=== PATIENT | male | born 1995 ===

== ENCOUNTER 2017-10-15 18:55 | Emergency (ER) | payer SELFPAY ==
[2017-10-15 18:59] VITALS: BP 115/76; PULSE 71; RESP 18; TEMP 97.4; O2SAT 100
[2017-10-15] MEDS ORDERED: Tdap Vaccine 0.5 ml Vial (10-64 yrs) IM ONE ×2 (19:48→19:55)
--- NOTE | 2017-10-15 19:52 | C.PDOC ---
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 Pt sts, " was helping my friend and puncture my hand with nail by accident". Otherwise, pt denies obvious deformity, weakness, sensory or vascular deficits to left hand. Ambulate to ED for evaluation, not in any apparent distress. Time Seen by Provider: 10/15/17 19:15 Chief Complaint (Nursing): Abnormal Skin Integrity History Per: Patient Past Medical History Reviewed: Historical Data, Nursing Documentation, Vital Signs Vital Signs: Last Vital Signs Temp 97.4 F L 10/15/17 18:58 Pulse 71 10/15/17 18:58 Resp 18 10/15/17 18:58 BP 115/76 10/15/17 18:58 Pulse Ox 100 10/15/17 18:58 - Medical History PMH: No Chronic Diseases Surgical History: Appendectomy Family History: States: No Known Family Hx - Social History Hx Alcohol Use: Yes Hx Substance Use: No - Immunization History Hx Tetanus Toxoid Vaccination: No Hx Influenza Vaccination: No Hx Pneumococcal Vaccination: No Review Of Systems Except As Marked, All Systems Reviewed And Found Negative. Constitutional: Negative for: Fever, Chills Musculoskeletal: Positive for: Hand Pain Skin: Positive for: Lesions Neurological: Negative for: Weakness, Numbness Physical Exam - Physical Exam Appears: Well, Non-toxic, No Acute Distress Skin: Normal Color, Warm Extremity: Normal ROM (Left hand), Tenderness (middle palmar aspect left hand small puncture wound), Capillary Refill (less than 2sec to left hand), No Deformity, No Swelling Neurological/Psych: Oriented x3, Normal Speech, Normal Motor, Normal Sensation, Normal Reflexes ED Course And Treatment O2 Sat by Pulse Oximetry: 100 Pulse Ox Interpretation: Normal - Other Rad Left hand X-Ray: Interpreted by Me, Viewed By Me Interpretation: (-) acute fx or dislocation, no FB Progress Note: On re-eval, pt is afebrile, hemodynamicaly stable. Non-toxic. Left hand: exam c/w puncture wound to left palm, no edema, no erythema, no wound discahrges. FAROM, no deformity, no neurovascular deficits. Woud cleaned , soaked, irrigated, covered by sterile dressing. tetanus, abx given. Pt advised. ref. to f/u with hand specialsit in 2-3 days for re-eval. return to ED if any worsening or new changes. Disposition Counseled Patient/Family Regarding: Studies Performed, Diagnosis, Need For Followup, Rx Given - Disposition Referrals: Ronald De La Cruz MD [Staff Provider] - Disposition: HOME/ ROUTINE Disposition Time: 19:55 Condition: STABLE Additional Instructions: keep wound clean, dry Apply antibiotic cream daily Take medication as prescribed Follow up with hand Specialist in 2-3 days for re-evaluation. return to Ed if any worsening or new changes. Prescriptions: Ciprofloxacin [Cipro] 1 tab PO BID #14 tab Mupirocin 2% Ointment [Bactroban Ointment] 1 appl TP DAILY #1 tube Instructions: Wound Care (DC) - Clinical Impression Clinical Impression: Puncture wound
--- NOTE | 2017-10-15 20:50 | RAD ---
PROCEDURE: Left Hand Radiographs. HISTORY: injury COMPARISON: None available. FINDINGS: BONES: No acute displaced fracture. JOINTS: No dislocation. SOFT TISSUES: Unremarkable. No evidence of radiopaque foreign body. OTHER FINDINGS: None. IMPRESSION: Questionable irregularity of the trapezoid. Recommend clinical correlation with physical exam to exclude point tenderness. Findings discussed with KAMLESH Velasquez on 10/15/17 at 845pm
== END 2017-10-15 20:16 | disposition home or self-care (01) ==
LOC: C.ER 18:55
DX: S61.432A Puncture wound without foreign body of left hand, initial encounter (principal); W26.9XXA Contact with unspecified sharp object(s), initial encounter; Z23 Encounter for immunization